=== PATIENT | female | born 1990 | race Caucasian/White ===

== ENCOUNTER 2018-02-08 15:58 | Emergency (ER) | payer OTHER ==
[~2018-02-08] VITALS: Ht 165.1 cm; Wt 98.0 kg
[~2018-02-08 15:58] MED LIST: ACYCLOVIR 400400 MG PO; AMOXICILLIN 50500 MG PO; AMOXICILLIN/POTASSIU PO; AZITHROMYCIN 2250 MG PO; BACTRIM DS TAB1 EACH PO; CIPROFLOXACIN500 M1 PO; MEDROLDOSEPACK PO; NEO-POLYMYXIN-H10 ML OT; NOHOMEMEDICATIONS; NORCO 5-325 TA1 EACH PO; NUVARING VAGIN1 EACH VG; PHENERGAN 25 MG25 M1 PO; PYRIDIUM200 MG PO; TRAMADOL 50 MG50 MG PO; VICODIN 5-5001 EACH PO; ZOFRAN4 MG PO; ZPAK PO; [UNRECOGNIZED DRUG - OTHER]
[2018-02-08 16:14] LABS: URINE BILIRUBIN NEGATIVE (Negative); URINE BLOOD TRACE (Negative); URINE CLARITY CLEAR; URINE COLOR YELLOW; URINE GLUCOSE-RANDOM NEGATIVE (Negative); URINE KETONES NEGATIVE (Negative); URINE LEUKOCYTES 3+ (Negative); URINE NITRITE POSITIVE (Negative); URINE PROTEIN NEGATIVE (Negative); URINE UROBILINOGEN 0.2 E.U./dl (0.2-1.0)
[2018-02-08 16:22] LABS: SQUAMOUS 4-10 Moderate /LPF (0-3)
[2018-02-08 16:23] LABS: CASTS None Seen /LPF (None Seen)
[2018-02-08 16:24] LABS: CRYSTALS None Seen /LPF (None Seen); URINE RBC 0-2 Rare /HPF (0-2); URINE WBC 6-15 Few /HPF (0-5)
[2018-02-08] MEDS ORDERED: BACTRIM DS TAB1 EACH PO (16:35)
[2018-02-08 16:43] VITALS: BP 136/94
== END 2018-02-08 16:44 | disposition home or self-care (01) ==
LOC: M.ERS 15:58
PROVIDERS: Physician Assistant
DX: N39.0 Urinary tract infection, site not specified (principal); Z90.49 Acquired absence of other specified parts of digestive tract; Z87.440 Personal history of urinary (tract) infections; F17.210 Nicotine dependence, cigarettes, uncomplicated